=== PATIENT | male | born 1975 | race Caucasian/White ===

== ENCOUNTER 2016-10-06 06:51 | Emergency (ER) | payer SELFPAY ==
[~2016-10-06] VITALS: Ht 177.8 cm; Wt 95.0 kg
[~2016-10-06 06:51] MED LIST: AUGM875 PO; DICL-86 PO
[2016-10-06 06:52] VITALS: BP 164/94; PULSE 80; RESP 16; TEMP 98.2; O2SAT 99
[2016-10-06] MEDS ORDERED: AZITHROMYCIN PWD FOR SUSP 1 GM PACKET PO ONE (07:30)
[2016-10-06] MEDS ORDERED: LIDOCAINE HCL 1% 50 ML VIAL IM ONE (07:30)
[2016-10-06] MEDS ORDERED: cefTRIAXone 250 MG VIAL IM ONE (07:30)
--- NOTE | 2016-10-06 07:32 | PD ---
HPI Chief Complaint: Complaint Time Seen by Provider: 07:27 Travel History International Travel<30 days: No Contact w/Intl Traveler<30days: No Traveled to known affect area: No History of Present Illness HPI 41-year-old male presents to the emergency Department with complaint of milky white discharge from his penis that he noticed yesterday. Denies dysuria, but says it does sting when he urinates. Denies penile or testicular pain or swelling. Denies abdominal pain, nausea, vomiting. Denies fever. Has not taken any medications or tried any chance to alleviate symptoms. No known allergies. Has no other medical complaints. No other modifying factors or associated signs and symptoms. PFSH Social History Alcohol Use: No Tobacco Use: No Substance Use: Yes (WEED ) Allergies-Medications (Allergen,Severity, Reaction): Coded Allergies: No Known Allergies (Verified , 02/23/09) Reported Meds & Prescriptions Reported Meds & Active Scripts Active Augmentin (Amoxicillin/Clavulanate Potassium) 875 Mg Tab 875 Mg PO BID 4 Days Voltaren (Diclofenac Sodium) 75 Mg Tabec 75 Mg PO BID Review of Systems Except as stated in HPI: all other systems reviewed are Neg Physical Exam Narrative GENERAL: Well-nourished, well-developed male patient, in no acute distress; afebrile, nontoxic-appearing SKIN: Warm and dry. HEAD: Atraumatic. Normocephalic. EYES: Pupils equal and round. ENT: Mucosa pink and moist. NECK: Trachea midline. No lymphadenopathy. CARDIOVASCULAR: Regular rate and rhythm. RESPIRATORY: No accessory muscle use. GASTROINTESTINAL: Abdomen soft, nontender, nondistended. Hepatic and splenic margins not palpable. Bowel sounds are active 4 quadrants. GENITOURINARY: Exam done in the presence of a nurse. Circumcised. Testes descended bilaterally without evidence of rotation. No lesions or erythema. Milky white urethral discharge. MUSCULOSKELETAL: No obvious deformities. No clubbing. No cyanosis. No edema. NEUROLOGICAL: Awake and alert. Oriented 3. No obvious cranial nerve deficits. Motor grossly within normal limits. Normal speech. Moves all extremities. 5/5 strength to all extremities. PSYCHIATRIC: Appropriate mood and affect; insight and judgment normal. Data Data Last Documented VS Vital Signs Date Time Temp Pulse Resp B/P Pulse Ox O2 Delivery O2 Flow Rate FiO2 10/06/16 06:52 98.2 80 16 164/94 99 Room Air Orders Gc And Chlamydia Pcr (10/06/16 07:19) Azithromycin Powd Pack (Zithromax Powd P (10/06/16 07:30) Ceftriaxone Inj (Rocephin Inj) (10/06/16 07:30) Lidocaine 1% Inj (50 Ml) (Xylocaine 1% I (10/06/16 07:30) MDM Medical Decision Making Medical Screen Exam Complete: Yes Emergency Medical Condition: Yes Medical Record Reviewed: Yes Differential Diagnosis Urethritis, chlamydia, gonorrhea, STI Narrative Course 41-year-old male with urethritis. Patient empirically treated with Rocephin and azithromycin. Chlamydia and gonorrhea pending. Instructed patient to follow up with primary care provider, health department, or [facility] for full STD screening. Patient verbalizes understanding and agreement with treatment plan. Patient is medically cleared and stable for discharge. Discussed reasons to return to the emergency department. Instructed patient to follow up with primary care provider. Patient agrees with treatment plan. The patients vital signs are stable and the patient is stable for outpatient follow- up and treatment. Patient discharged home, stable and in no acute distress. Diagnosis Primary Impression: Urethritis Referrals: [facility] Primary Care Physician Patient Instructions: Chlamydia (ED), General Instructions, Gonorrhea (ED), Nonspecific Urethritis in Men (ED), Sexually Transmitted Diseases (ED) Departure Forms: Tests/Procedures, Work Release Enter return to work date: October 06, 2016 Additional Instructions: Avoid sexual activity until you follow up with your primary care provider Inform all sexual partners within the past 3-6 months that they need to be evaluated and treated Use condoms every time you have sex Follow-up with primary care provider Return to the emergency department immediately with worsening of symptoms Med/Other Pt SpecificInfo: No Meds Exist/No RX given Disposition: 01 DISCHARGE HOME Condition: Stable Qian Castillo October 06, 2016 07:32
[2016-10-06] MEDS ORDERED: LISI10TA3 PO (07:56)
[2016-10-06 13:15] LABS: CHLAMYDIA PCR NOT DETECTED (NOT DETECT); NEISSERIA PCR DETECTED (NOT DETECT)
== END 2016-10-06 08:40 | disposition home or self-care (01) ==
LOC: NEPK 06:51
DX: N34.2 Other urethritis (principal)
CPT/HCPCS: 87491; 87591; 96372; 99284; J0696